=== PATIENT | male | born 1940 | race African-American/Black ===

== ENCOUNTER 2022-06-18 13:40 | Inpatient (IN) | payer MEDICARE, MEDICAID ==
[2022-06-18] MEDS ORDERED: Midazolam HCl 2 mg/2 ml Vial ONE (14:11)
[2022-06-18 14:26] LABS: #Eosinphils 0.4 10x3/uL (0.0-0.5); #Monocytes 0.2 10x3/uL (0.0-1.1); #Neutrophils 3.5 10x3/uL (1.5-8.4); %Basophils 0.2 % (0.0-2.0); %Eosinophils 7.7 % (0.0-6.0); %Lymphocytes 19.2 % (18.0-47.0); %Neutrophils 69.7 % (40.0-75.0); Hemoglobin 12.3 g/dL (13.5-17.5); Mean Corpuscular HGB CONC 31.8 g/dL (32.0-36.0); Mean Corpuscular Hemoglobin 26.5 pg (27.0-33.0); Mean Corpuscular Volume 83.2 fl (81.2-95.1); Mean Platelet Volume 12.2 fl (7.4-10.4); Platelet Count 94 10x3/uL (150-450); RBC Distribution Width 16.1 % (11.5-14.5); Red Blood Cell (RBC) Count 4.65 10x6/uL (4.32-5.72); White Blood Cell (WBC) Count 5.1 10x3/uL (3.5-10.5)
[2022-06-18 14:39] LABS: ALT (SGPT) 261 U/L (8-55); AST (SGOT) 156 U/L (5-34); Albumin 3.1 g/dL (3.4-4.8); Alkaline Phosphatase 89 U/L (40-110); Anion Gap 16 mmol/L (10-20); BUN (Urea Nitrogen) 29 mg/dL (8.4-25.7); Bilirubin, Total 0.2 mg/dL (0.2-1.2); Calc. Creatinine Clearance 0 mL/min (70-130); Calcium 10.3 mg/dL (7.8-10.44); Carbon Dioxide 24 mmol/L (23-31); Chloride 113 mmol/L (98-107); Estimated GFR 51; Globulin 3.3 g/dL (2.4-3.5); Glucose 171 mg/dL (83-110); Potassium 4.9 mmol/L (3.5-5.1); Protein, Total 6.4 g/dL (5.8-8.1); Sodium 148 mmol/L (136-145)
[2022-06-18] MEDS ORDERED: Sterile Water 10 ML ONE (14:41)
[2022-06-18] MEDS ORDERED: ADMIXTURE FEE IVPB SCH (15:00)
[2022-06-18] MEDS ORDERED: WATER IVPB SCH (15:00)
[2022-06-18] MEDS ORDERED: DEXTROSE IVPB SCH (15:00)
[2022-06-18] MEDS ORDERED: ISOPROTERENOL IVPB SCH (15:00)
[2022-06-18 15:10] LABS: Bilirubin Neg (Negative); Blood, Urine 250 (Negative); Clarity Slightly Cloudy (Clear); Glucose, Urine (Dipstick) Normal (Negative); Ketone, Urine Negative (Negative); Leukocyte 500 (Negative); Nitrite Positive (Negative); Protein, Urine (Dipstick) 100 mg/dl (Neg-Trace); Specific Gravity, Urine 1.015 (1.002-1.036); Urobilinogen Normal mg/dL (Less than 2)
[2022-06-18] MEDS ORDERED: Cefepime 2 GM VIAL ONE (15:38)
[2022-06-18 15:54] LABS: Bacteria/HPF 4+ HPF (None Seen); Squamous Epithelial 0-3 HPF (0-3); WBC/HPF 21-50 HPF (0-3)
[2022-06-18] MEDS ORDERED: Vancomycin 1.5 GRAM/300 ML BAG 1.5 GM in Premix Bag 1 BAG IVPB SCH (16:00)
[2022-06-18 16:13] LABS: SARS-CoV-2 NAA Rapid Test Not Detected (NotDetected)
[2022-06-18 17:02] LABS: Lactic Acid 2.8 mmol/L (0.5-2.2)
[2022-06-18] MEDS ORDERED: Isoproterenol 2 MG in Dextrose 5% in Water 500 ML IVPB SCH (17:45)
[2022-06-18] MEDS ORDERED: Sodium Chloride 0.9% 500 ML IV SCH (18:45)
[2022-06-18 19:27] LABS: Troponin I 0.024 ng/mL (< 0.028)
[2022-06-18] MEDS: Dextrose 5 %-0.45 % NaCl 1,000 ML IV SCH (19:47)
[2022-06-18] MEDS: levETIRAcetam 500 MG/5 ML VIAL SLOW IVP SCH (20:18)
[2022-06-18 21:42] LABS: Legionella Urinary Ag Negative (Negative); Strep pneumo Urine Ag NEGATIVE (NEGATIVE)
[2022-06-18] MEDS ORDERED: NOREPINEPHRINE 8 MG/250 ML-D5W 250 ML ONE (21:44)
[2022-06-18] MEDS ORDERED: NOREPINEPHRINE 8 MG/250 ML-D5W 250 ML IVPB SCH (22:00)
[2022-06-19] MEDS: Cefepime 1 GM in Sodium Chloride 0.9% 100 ML IVPB SCH ×2 (03:32→14:57)
[2022-06-19 03:53] LABS: INR-International Normal Ratio 1.1; Prothrombin Time 11.5 sec (9.5-12.1)
[2022-06-19 04:02] LABS: ALT (SGPT) 202 U/L (8-55); AST (SGOT) 92 U/L (5-34); Albumin 2.8 g/dL (3.4-4.8); Alkaline Phosphatase 78 U/L (40-110); Anion Gap 10 mmol/L (10-20); BUN (Urea Nitrogen) 23 mg/dL (8.4-25.7); Bilirubin, Direct 0.1 mg/dL (0.1-0.3); Bilirubin, Total 0.2 mg/dL (0.2-1.2); Calc. Creatinine Clearance 39 mL/min (70-130); Carbon Dioxide 25 mmol/L (23-31); Cardiac Risk 2.9 (Less than 4.5); Chloride 119 mmol/L (98-107); Cholesterol 110 mg/dl (< 200 Desired); Estimated GFR 52; Glucose 87 mg/dL (83-110); HDL Cholesterol 38 mg/dL (>60 Neg Risk); LDL Cholesterol, Calculated 64 mg/dL; Magnesium 1.6 mg/dL (1.6-2.6); Potassium 4.1 mmol/L (3.5-5.1); Protein, Total 5.5 g/dL (5.8-8.1); Sodium 150 mmol/L (136-145); Triglycerides 41 mg/dL (Less than 150)
[2022-06-19 04:04] LABS: Hemoglobin 11.2 g/dL (13.5-17.5); Mean Corpuscular HGB CONC 33.3 g/dL (32.0-36.0); Mean Corpuscular Hemoglobin 26.9 pg (27.0-33.0); Mean Corpuscular Volume 80.6 fl (81.2-95.1); Mean Platelet Volume 12.6 fl (7.4-10.4); Platelet Count 88 10x3/uL (150-450); RBC Distribution Width 16.2 % (11.5-14.5); Red Blood Cell (RBC) Count 4.17 10x6/uL (4.32-5.72); White Blood Cell (WBC) Count 8.1 10x3/uL (3.5-10.5)
[2022-06-19 04:06] LABS: Troponin I 0.122 ng/mL (< 0.028)
[2022-06-19 05:36] LABS: MDiff Complete? YES
[2022-06-19 05:40] LABS: Band 9 % (5-11); Eosinophils 3 % (0-10); Lymphocytes 5 % (21-51); Monocytes 2 % (0-10); Neutrophil 81 % (42-75); Nucleated RBC 1 % (0)
[2022-06-19 05:43] LABS: Platelet Morphology Comment Appears Decreased
[2022-06-19 05:45] LABS: Elliptocytes SLIGHT = 2-5 cells (100X) (0-1/hpf)
[2022-06-19] MEDS ORDERED: Enoxaparin Sodium 40 MG/0.4 ML SYRINGE SC SCH (09:00)
[2022-06-19] MEDS: levETIRAcetam 500 MG/5 ML VIAL SLOW IVP SCH ×2 (09:05→21:00)
[2022-06-19] MEDS: Pantoprazole 40 MG VIAL IVP SCH (09:17)
[2022-06-19 12:58] LABS: HBCM Index 0.07 S/CO (0-0.79); HBSAg Index 0.27 S/CO (0-0.99); Hep A IgM AB Non-Reactive (NonReactive); Hep A IgM S/CO 0.31 S/CO (0-0.79); Hep B Surf Ag Non-Reactive S/CO (NonReactive); Hep C IgG Ab Non-Reactive (NonReactive); Hep C Index 0.08 S/CO (0-0.79); Hepatitis B Core IgM Abs Non-Reactive (NonReactive)
[2022-06-19] MEDS ORDERED: Vancomycin HCl 1 GM in Sodium Chloride 0.9% 250 ML 250 ML IVPB SCH (16:00)
[2022-06-19] MEDS: Dextrose 5 %-0.45 % NaCl 1,000 ML IV SCH ×2 (16:21→20:53)
[2022-06-20] MEDS: Dextrose 5 %-0.45 % NaCl 1,000 ML IV SCH
[2022-06-20] MEDS: Scopolamine 1.5 mg/72 hour Patch TOP SCH (00:26)
[2022-06-20 04:15] LABS: Mean Corpuscular HGB CONC 32.1 g/dL (32.0-36.0); Mean Corpuscular Hemoglobin 25.6 pg (27.0-33.0); Mean Corpuscular Volume 79.8 fl (81.2-95.1); Platelet Count 69 10x3/uL (150-450); RBC Distribution Width 16.4 % (11.5-14.5); Red Blood Cell (RBC) Count 3.91 10x6/uL (4.32-5.72); White Blood Cell (WBC) Count 6.4 10x3/uL (3.5-10.5)
[2022-06-20 04:27] LABS: Anion Gap 13 mmol/L (10-20); BUN (Urea Nitrogen) 19 mg/dL (8.4-25.7); Calc. Creatinine Clearance 41 mL/min (70-130); Calcium 9.2 mg/dL (7.8-10.44); Carbon Dioxide 23 mmol/L (23-31); Chloride 118 mmol/L (98-107); Estimated GFR 50; Glucose 98 mg/dL (83-110); Magnesium 1.6 mg/dL (1.6-2.6); Potassium 3.5 mmol/L (3.5-5.1); Sodium 150 mmol/L (136-145)
[2022-06-20 04:31] LABS: ALT (SGPT) 147 U/L (8-55); AST (SGOT) 53 U/L (5-34); Albumin 2.6 g/dL (3.4-4.8); Alkaline Phosphatase 73 U/L (40-110); Bilirubin, Direct 0.1 mg/dL (0.1-0.3); Bilirubin, Total 0.2 mg/dL (0.2-1.2); Protein, Total 5.3 g/dL (5.8-8.1)
[2022-06-20] MEDS: Cefepime 1 GM in Sodium Chloride 0.9% 100 ML IVPB SCH ×2 (04:39→16:19)
[2022-06-20 06:29] LABS: MDiff Complete? YES; Platelet Morphology Comment Appears Decreased
[2022-06-20 06:34] LABS: Band 5 % (5-11); Eosinophils 1 % (0-10); Lymphocytes 12 % (21-51); Monocytes 6 % (0-10); Neutrophil 76 % (42-75)
[2022-06-20] MEDS: levETIRAcetam 500 MG/5 ML VIAL SLOW IVP SCH ×2 (08:53→20:43)
[2022-06-20] MEDS: Pantoprazole 40 MG VIAL IVP SCH (08:53)
[2022-06-20] MEDS: Dextrose 5% in Water 1,000 ML IV SCH (08:55)
[2022-06-20 13:12] VITALS: BMI 21.2
[2022-06-20 15:55] LABS: Vancomycin, Trough 11.9 ug/mL
[2022-06-21] MEDS: Dextrose 5% in Water 1,000 ML IV SCH ×2 (00:41→17:00)
[2022-06-21] MEDS ORDERED: hydrALAZINE 20 MG/ML VIAL SLOW IVP SCH (01:30)
[2022-06-21] MEDS: Cefepime 1 GM in Sodium Chloride 0.9% 100 ML IVPB SCH ×2 (03:48→18:59)
[2022-06-21 04:38] LABS: #Eosinphils 0.4 10x3/uL (0.0-0.5); #Monocytes 0.4 10x3/uL (0.0-1.1); #Neutrophils 4.7 10x3/uL (1.5-8.4); %Basophils 0.2 % (0.0-2.0); %Eosinophils 5.4 % (0.0-6.0); %Lymphocytes 15.1 % (18.0-47.0); %Monocytes 6.7 % (0.0-10.0); Hemoglobin 10.9 g/dL (13.5-17.5); Mean Corpuscular HGB CONC 32.6 g/dL (32.0-36.0); Mean Corpuscular Hemoglobin 25.8 pg (27.0-33.0); Mean Platelet Volume 11.6 fl (7.4-10.4); Platelet Count 71 10x3/uL (150-450); RBC Distribution Width 15.9 % (11.5-14.5); Red Blood Cell (RBC) Count 4.23 10x6/uL (4.32-5.72); White Blood Cell (WBC) Count 6.5 10x3/uL (3.5-10.5)
[2022-06-21 04:58] LABS: Anion Gap 12 mmol/L (10-20); BUN (Urea Nitrogen) 13 mg/dL (8.4-25.7); Calc. Creatinine Clearance 44 mL/min (70-130); Calcium 9.9 mg/dL (7.8-10.44); Carbon Dioxide 26 mmol/L (23-31); Chloride 111 mmol/L (98-107); Estimated GFR 58; Glucose 99 mg/dL (83-110); Magnesium 1.6 mg/dL (1.6-2.6); Potassium 3.5 mmol/L (3.5-5.1); Sodium 145 mmol/L (136-145)
[2022-06-21] MEDS ORDERED: Magnesium 2 GM/50 ML(in water) 4 GM in Premix Bag 1 BAG IVPB SCH ×2 (06:30→09:00)
[2022-06-21] MEDS ORDERED: Potassium Chloride 40 MEQ in Premix Bag 1 BAG IVPB SCH (06:30)
[2022-06-21] MEDS ORDERED: levETIRAcetam 500 MG/5 ML VIAL ONE ×3 (08:34→10:38)
[2022-06-21] MEDS: Potassium Chloride 20 MEQ in Premix Bag 1 BAG IVPB SCH ×2 (09:00→11:02)
[2022-06-21] MEDS: Pantoprazole 40 MG VIAL IVP SCH (09:01)
[2022-06-21] MEDS: levETIRAcetam 500 MG/5 ML VIAL SLOW IVP SCH ×2 (10:44→21:16)
[2022-06-21] MEDS: hydrALAZINE 20 MG/ML VIAL SLOW IVP PRN (19:40)
[2022-06-22] MEDS: Dextrose 5% in Water 1,000 ML IV SCH ×2 (04:49→20:00)
[2022-06-22 06:40] LABS: Anion Gap 13 mmol/L (10-20); BUN (Urea Nitrogen) 9 mg/dL (8.4-25.7); Calc. Creatinine Clearance 64 mL/min (70-130); Calcium 9.4 mg/dL (7.8-10.44); Carbon Dioxide 23 mmol/L (23-31); Chloride 111 mmol/L (98-107); Estimated GFR 87; Glucose 127 mg/dL (83-110); Magnesium 2.6 mg/dL (1.6-2.6); Potassium 3.8 mmol/L (3.5-5.1); Sodium 143 mmol/L (136-145)
[2022-06-22 07:16] LABS: Hemoglobin 11.8 g/dL (13.5-17.5); Mean Corpuscular HGB CONC 32.9 g/dL (32.0-36.0); Mean Corpuscular Hemoglobin 26.4 pg (27.0-33.0); Mean Corpuscular Volume 80.3 fl (81.2-95.1); Platelet Count 65 10x3/uL (150-450); RBC Distribution Width 15.9 % (11.5-14.5); Red Blood Cell (RBC) Count 4.47 10x6/uL (4.32-5.72); White Blood Cell (WBC) Count 4.5 10x3/uL (3.5-10.5)
[2022-06-22] MEDS: hydrALAZINE 20 MG/ML VIAL SLOW IVP PRN (07:50)
[2022-06-22] MEDS: Cefepime 1 GM in Sodium Chloride 0.9% 100 ML IVPB SCH ×2 (07:52→17:17)
[2022-06-22 08:19] LABS: MDiff Complete? YES; Manual Diff?? YES
[2022-06-22] MEDS ORDERED: levETIRAcetam 500 MG/5 ML VIAL ONE ×2 (10:38)
[2022-06-22] MEDS: Pantoprazole 40 MG VIAL IVP SCH (10:48)
[2022-06-22] MEDS: levETIRAcetam 500 MG/5 ML VIAL SLOW IVP SCH ×2 (10:48→22:55)
[2022-06-22 11:07] LABS: Band 10 % (5-11); Eosinophils 5 % (0-10); Lymphocytes 8 % (21-51); Metamyelocyte 1 % (0-0); Monocytes 6 % (0-10); Neutrophil 69 % (42-75); Nucleated RBC 2 % (0); Reactive Lymphocytes 1 % (0-10)
[2022-06-22 11:08] LABS: Anisocytosis SLIGHT = 6-15 cells (100X) (0-5/hpf); Platelet Morphology Comment Appears Decreased
[2022-06-23] MEDS: Scopolamine 1.5 mg/72 hour Patch TOP SCH (01:04)
[2022-06-23] MEDS: Dextrose 5% in Water 1,000 ML IV SCH ×3 (02:55→22:33)
[2022-06-23] MEDS: Cefepime 1 GM in Sodium Chloride 0.9% 100 ML IVPB SCH ×2 (04:09→17:34)
[2022-06-23 04:22] LABS: Anion Gap 11 mmol/L (10-20); BUN (Urea Nitrogen) 8 mg/dL (8.4-25.7); Calc. Creatinine Clearance 54 mL/min (70-130); Calcium 9.2 mg/dL (7.8-10.44); Carbon Dioxide 24 mmol/L (23-31); Chloride 112 mmol/L (98-107); Estimated GFR 74; Glucose 97 mg/dL (83-110); Magnesium 2.3 mg/dL (1.6-2.6); Potassium 3.7 mmol/L (3.5-5.1); Sodium 143 mmol/L (136-145)
[2022-06-23 04:29] LABS: Mean Platelet Volume 11.8 fl (7.4-10.4)
[2022-06-23 04:30] LABS: #Eosinphils 0.5 10x3/uL (0.0-0.5); #Monocytes 0.3 10x3/uL (0.0-1.1); #Neutrophils 2.6 10x3/uL (1.5-8.4); %Basophils 0.2 % (0.0-2.0); %Eosinophils 11.2 % (0.0-6.0); %Lymphocytes 22.6 % (18.0-47.0); %Monocytes 7.5 % (0.0-10.0); Hemoglobin 11.6 g/dL (13.5-17.5); Mean Corpuscular HGB CONC 33.3 g/dL (32.0-36.0); Mean Corpuscular Hemoglobin 26.1 pg (27.0-33.0); Mean Corpuscular Volume 78.2 fl (81.2-95.1); Platelet Count 85 10x3/uL (150-450); RBC Distribution Width 15.7 % (11.5-14.5); Red Blood Cell (RBC) Count 4.45 10x6/uL (4.32-5.72); White Blood Cell (WBC) Count 4.4 10x3/uL (3.5-10.5)
[2022-06-23] MEDS: Pantoprazole 40 MG VIAL IVP SCH (09:35)
[2022-06-23] MEDS: levETIRAcetam 500 MG/5 ML VIAL SLOW IVP SCH ×2 (09:35→20:57)
[2022-06-23] MEDS ORDERED: levETIRAcetam 500 MG/5 ML VIAL ONE ×2 (20:12→20:13)
[2022-06-24] MEDS: Cefepime 1 GM in Sodium Chloride 0.9% 100 ML IVPB SCH (05:13)
[2022-06-24 07:28] LABS: #Eosinphils 0.5 10x3/uL (0.0-0.5); #Monocytes 0.2 10x3/uL (0.0-1.1); #Neutrophils 3.4 10x3/uL (1.5-8.4); %Basophils 0.2 % (0.0-2.0); %Eosinophils 8.9 % (0.0-6.0); %Lymphocytes 18.1 % (18.0-47.0); %Monocytes 4.7 % (0.0-10.0); %Neutrophils 67.7 % (40.0-75.0); Hemoglobin 11.7 g/dL (13.5-17.5); Mean Corpuscular HGB CONC 33.1 g/dL (32.0-36.0); Mean Corpuscular Hemoglobin 26.2 pg (27.0-33.0); Mean Corpuscular Volume 79.1 fl (81.2-95.1); Platelet Count 82 10x3/uL (150-450); RBC Distribution Width 15.4 % (11.5-14.5); Red Blood Cell (RBC) Count 4.46 10x6/uL (4.32-5.72); White Blood Cell (WBC) Count 5.1 10x3/uL (3.5-10.5)
[2022-06-24 07:45] LABS: Anion Gap 12 mmol/L (10-20); BUN (Urea Nitrogen) 5 mg/dL (8.4-25.7); Calc. Creatinine Clearance 59 mL/min (70-130); Calcium 9.3 mg/dL (7.8-10.44); Carbon Dioxide 24 mmol/L (23-31); Chloride 112 mmol/L (98-107); Estimated GFR 82; Glucose 101 mg/dL (83-110); Potassium 3.5 mmol/L (3.5-5.1); Sodium 144 mmol/L (136-145)
[2022-06-24] MEDS: Pantoprazole 40 MG VIAL IVP SCH (09:24)
[2022-06-24] MEDS: levETIRAcetam 500 MG/5 ML VIAL SLOW IVP SCH (09:24)
[2022-06-24] MEDS ORDERED: Cefdinir 300 MG CAP PO SCH ×2 (14:00→21:00)
[2022-06-24 16:17] VITALS: BP 167/83; TEMP 97.6
[2022-06-27 08:14] LABS: Critical Notified Time 1423; Puncture Site Other Site
[2022-06-27 08:15] LABS: Actual Bicarbonate (HCO3v) 24 mEq/L (22-28); pH (venous) 7.24 (7.32-7.43)
[2022-06-27 08:17] LABS: Calcium, Ionized (venous) 1.22 mmol/L (1.16-1.32); Chloride (VBG) 113 mmol/L (98-106); Hemoglobin (Hb) 12.3 g/dL (12.6-17.4); Potassium (VBG) 3.77 mmol/L (3.70-5.30); RapidComm Collect By CBN; Sodium 147.5 mmol/L (133-146)
== END 2022-06-24 16:00 | DRG 100 ==
LOC: CSHERS 13:40 → CSHICU 18:02 → CSHTELE 06-20 19:10
PROVIDERS: ADMIT Family Medicine; ATTEND Internal Medicine
PROC: 06HY33Z Insertion of Infusion Device into Lower Vein, Percutaneous Approach (ICD-10-PCS; principal; 2022-06-18)
PROC: 3E043XZ Introduction of Vasopressor into Central Vein, Percutaneous Approach (ICD-10-PCS; 2022-06-18)
DX: R56.9 Unspecified convulsions (principal); A41.59 Other Gram-negative sepsis; G93.41 Metabolic encephalopathy; J18.9 Pneumonia, unspecified organism; R65.21 Severe sepsis with septic shock; R44.3 Hallucinations, unspecified; N17.9 Acute kidney failure, unspecified; E87.1 Hypo-osmolality and hyponatremia; E87.0 Hyperosmolality and hypernatremia; N39.0 Urinary tract infection, site not specified; B17.9 Acute viral hepatitis, unspecified; E46 Unspecified protein-calorie malnutrition; G30.9 Alzheimer's disease, unspecified; Z66 Do not resuscitate; Z51.5 Encounter for palliative care; F02.80 Dementia in other diseases classified elsewhere, unspecified severity, without behavioral disturbance, psychotic disturbance, mood disturbance, and anxiety; E78.5 Hyperlipidemia, unspecified; M10.9 Gout, unspecified; E78.00 Pure hypercholesterolemia, unspecified; F41.9 Anxiety disorder, unspecified; I12.9 Hypertensive chronic kidney disease with stage 1 through stage 4 chronic kidney disease, or unspecified chronic kidney disease; E11.22 Type 2 diabetes mellitus with diabetic chronic kidney disease; R00.1 Bradycardia, unspecified; D69.6 Thrombocytopenia, unspecified; T68.XXXA Hypothermia, initial encounter; Z20.822 Contact with and (suspected) exposure to COVID-19; E88.09 Other disorders of plasma-protein metabolism, not elsewhere classified; B96.89 Other specified bacterial agents as the cause of diseases classified elsewhere; E55.9 Vitamin D deficiency, unspecified; N18.2 Chronic kidney disease, stage 2 (mild); R53.81 Other malaise; E86.0 Dehydration; N40.0 Benign prostatic hyperplasia without lower urinary tract symptoms; I69.319 Unspecified symptoms and signs involving cognitive functions following cerebral infarction; Z87.891 Personal history of nicotine dependence; Z79.899 Other long term (current) drug therapy; Z90.79 Acquired absence of other genital organ(s); Z98.890 Other specified postprocedural states; Z68.21 Body mass index [BMI] 21.0-21.9, adult; Z91.018 Allergy to other foods; Z78.1 Physical restraint status; Z91.041 Radiographic dye allergy status
CPT/HCPCS: 36415; 36416; 36556; 51702; 70450; 71045; 76705; 76770; 80048; 80053; 80061; 80074; 80076; 80202; 81003; 81015; 82140; 82533; 82550; 82805; 83036; 83605; 83735; 84443; 84484; 85025; 85610; 85730; 87040; 87077; 87081; 87086; 87186; 87449; 87899; 93005; 93010; 93306; 95713; 95819; 95957; 96365; 96366; 96368; 96375; C9113; J0360; J0692; J1610; J1650; J1953; J2250; J3370; J3475; J3480; J3490; J7030; J7042; J7050; J7070; U0002

== ENCOUNTER 2022-09-19 13:52 | Inpatient (IN) | payer MEDICARE, MEDICAID ==
[2022-09-19] MEDS ORDERED: Dextrose 50% Abboject 50 ML SYRINGE ONE (13:58)
[2022-09-19 14:32] LABS: #Monocytes 0.5 10x3/uL (0.0-1.1); #Neutrophils 7.4 10x3/uL (1.5-8.4); %Basophils 0.4 % (0.0-2.0); %Eosinophils 0.2 % (0.0-6.0); %Lymphocytes 12.3 % (18.0-47.0); %Monocytes 5.6 % (0.0-10.0); %Neutrophils 81.2 % (40.0-75.0); Hemoglobin 14.2 g/dL (13.5-17.5); Mean Corpuscular HGB CONC 31.1 g/dL (32.0-36.0); Mean Corpuscular Hemoglobin 26.8 pg (27.0-33.0); Mean Corpuscular Volume 86.2 fl (81.2-95.1); Mean Platelet Volume 11.4 fl (7.4-10.4); Platelet Count 310 10x3/uL (150-450); RBC Distribution Width 18.1 % (11.5-14.5); White Blood Cell (WBC) Count 9.1 10x3/uL (3.5-10.5)
[2022-09-19 15:32] LABS: ALT (SGPT) 34 U/L (8-55); AST (SGOT) 28 U/L (5-34); Albumin 3.8 g/dL (3.4-4.8); Alkaline Phosphatase 118 U/L (40-110); Anion Gap 22 mmol/L (10-20); BUN (Urea Nitrogen) 92 mg/dL (8.4-25.7); Bilirubin, Total 1.1 mg/dL (0.2-1.2); Calc. Creatinine Clearance 0 mL/min (70-130); Carbon Dioxide 22 mmol/L (23-31); Chloride 131 mmol/L (98-107); Estimated GFR 21; Glucose 243 mg/dL (83-110); Potassium 3.4 mmol/L (3.5-5.1); Protein, Total 7.8 g/dL (5.8-8.1); Sodium 172 mmol/L (136-145)
[2022-09-19] MEDS ORDERED: Dextrose 5% in Water 1,000 ML IV SCH ×2 (17:45→21:15)
[2022-09-19] MEDS ORDERED: Sodium Chloride 0.45% 1,000 ML IV SCH (17:45)
[2022-09-19 20:41] LABS: Anion Gap 19 mmol/L (10-20); BUN (Urea Nitrogen) 88 mg/dL (8.4-25.7); Calc. Creatinine Clearance 15 mL/min (70-130); Calcium 9.6 mg/dL (7.8-10.44); Carbon Dioxide 20 mmol/L (23-31); Chloride 133 mmol/L (98-107); Estimated GFR 24; Glucose 137 mg/dL (83-110); Magnesium 3.2 mg/dL (1.6-2.6); Potassium 4.1 mmol/L (3.5-5.1); Sodium 168 mmol/L (136-145)
[2022-09-19 21:11] LABS: SARS-CoV-2 NAA Rapid Test Not Detected (NotDetected)
[2022-09-20 00:56] LABS: Anion Gap 15 mmol/L (10-20); BUN (Urea Nitrogen) 80 mg/dL (8.4-25.7); Calc. Creatinine Clearance 18 mL/min (70-130); Carbon Dioxide 21 mmol/L (23-31); Chloride 130 mmol/L (98-107); Estimated GFR 29; Glucose 248 mg/dL (83-110); Potassium 3.6 mmol/L (3.5-5.1); Sodium 162 mmol/L (136-145)
[2022-09-20] MEDS ORDERED: Electrolyte Replacement Protocol FS PRN (02:10)
[2022-09-20] MEDS: Dextrose 5% in Water 1,000 ML IV SCH ×4 (02:28→14:18)
[2022-09-20] MEDS: Potassium Chloride 20 MEQ in Premix Bag 1 BAG IVPB SCH ×4 (02:29→17:06)
[2022-09-20 04:52] LABS: Albumin 3.1 g/dL (3.4-4.8); Anion Gap 15 mmol/L (10-20); BUN (Urea Nitrogen) 74 mg/dL (8.4-25.7); BUN/Creatinine Ratio 36.82; Calc. Creatinine Clearance 20 mL/min (70-130); Calcium 9.2 mg/dL (7.8-10.44); Carbon Dioxide 22 mmol/L (23-31); Chloride 128 mmol/L (98-107); Estimated GFR 33; Glucose 199 mg/dL (83-110); Magnesium 2.8 mg/dL (1.6-2.6); Phosphorus 2.5 mg/dL (2.3-4.7); Potassium 3.6 mmol/L (3.5-5.1); Sodium 161 mmol/L (136-145)
[2022-09-20] MEDS ORDERED: Sodium Chloride 0.45% 1,000 ML IV SCH (08:15)
[2022-09-20] MEDS ORDERED: Ondansetron PF 4 MG/2 ML Vial IVP PRN (08:20)
[2022-09-20] MEDS ORDERED: Acetaminophen 650 MG Suppository PR PRN (08:20)
[2022-09-20] MEDS ORDERED: Ondansetron ODT 4 MG TAB PO PRN (08:20)
[2022-09-20] MEDS ORDERED: Acetaminophen 500 MG TAB PO PRN (08:20)
[2022-09-20] MEDS: Sodium Chloride 0.45% 1,000 ML IV SCH ×2 (08:46→23:38)
[2022-09-20] MEDS: Famotidine/PF 20 mg/2ml Vial SLOW IVP SCH (09:02)
[2022-09-20 14:29] LABS: Anion Gap 11 mmol/L (10-20); BUN (Urea Nitrogen) 53 mg/dL (8.4-25.7); Calc. Creatinine Clearance 27 mL/min (70-130); Calcium 8.7 mg/dL (7.8-10.44); Carbon Dioxide 25 mmol/L (23-31); Chloride 124 mmol/L (98-107); Estimated GFR 45; Glucose 161 mg/dL (83-110); Potassium 3.4 mmol/L (3.5-5.1); Sodium 157 mmol/L (136-145)
[2022-09-20] MEDS ORDERED: Dextrose 5% in Water 1,000 ML IV SCH (15:50)
[2022-09-21 04:25] LABS: #Eosinphils 0.2 10x3/uL (0.0-0.5); #Monocytes 0.3 10x3/uL (0.0-1.1); %Basophils 0.2 % (0.0-2.0); %Eosinophils 3.1 % (0.0-6.0); %Lymphocytes 21.3 % (18.0-47.0); %Monocytes 5.9 % (0.0-10.0); %Neutrophils 69.2 % (40.0-75.0); Hemoglobin 11.2 g/dL (13.5-17.5); Mean Corpuscular HGB CONC 32.1 g/dL (32.0-36.0); Mean Corpuscular Hemoglobin 26.2 pg (27.0-33.0); Mean Corpuscular Volume 81.7 fl (81.2-95.1); Mean Platelet Volume 12.1 fl (7.4-10.4); Platelet Count 210 10x3/uL (150-450); RBC Distribution Width 16.7 % (11.5-14.5); Red Blood Cell (RBC) Count 4.27 10x6/uL (4.32-5.72); White Blood Cell (WBC) Count 5.7 10x3/uL (3.5-10.5)
[2022-09-21 04:48] LABS: ALT (SGPT) 26 U/L (8-55); AST (SGOT) 34 U/L (5-34); Albumin 2.9 g/dL (3.4-4.8); Alkaline Phosphatase 91 U/L (40-110); Anion Gap 11 mmol/L (10-20); BUN (Urea Nitrogen) 33 mg/dL (8.4-25.7); Bilirubin, Total 1.1 mg/dL (0.2-1.2); Calc. Creatinine Clearance 33 mL/min (70-130); Calcium 8.7 mg/dL (7.8-10.44); Carbon Dioxide 23 mmol/L (23-31); Chloride 124 mmol/L (98-107); Estimated GFR 60; Globulin 2.9 g/dL (2.4-3.5); Glucose 100 mg/dL (83-110); Magnesium 2.4 mg/dL (1.6-2.6); Phosphorus 1.9 mg/dL (2.3-4.7); Potassium 3.8 mmol/L (3.5-5.1); Protein, Total 5.8 g/dL (5.8-8.1); Sodium 154 mmol/L (136-145)
[2022-09-21] MEDS ORDERED: Potassium Phosphate 15 MMOL in Sodium Chloride 0.9% 100 ML IVPB SCH (06:00)
[2022-09-21] MEDS: Famotidine/PF 20 mg/2ml Vial SLOW IVP SCH (07:33)
[2022-09-21] MEDS: D5 1/4 NS 1,000 ML IV SCH ×2 (11:47→21:55)
[2022-09-21] MEDS: hydrALAZINE 20 MG/ML VIAL SLOW IVP PRN (16:34)
[2022-09-21] MEDS: Latanoprost 0.005% Ophth Soln 2.5 ml Bottle EA EYE SCH (20:12)
[2022-09-21] MEDS: Dorzolamide HCl 2% Ophth Soln 10 ml Bottle EA EYE SCH (20:13)
[2022-09-22 04:52] LABS: ALT (SGPT) 27 U/L (8-55); AST (SGOT) 36 U/L (5-34); Alkaline Phosphatase 99 U/L (40-110); Anion Gap 11 mmol/L (10-20); BUN (Urea Nitrogen) 21 mg/dL (8.4-25.7); Bilirubin, Total 0.7 mg/dL (0.2-1.2); Calc. Creatinine Clearance 50 mL/min (70-130); Calcium 8.9 mg/dL (7.8-10.44); Carbon Dioxide 23 mmol/L (23-31); Chloride 119 mmol/L (98-107); Estimated GFR 84; Globulin 3.2 g/dL (2.4-3.5); Glucose 107 mg/dL (83-110); Protein, Total 6.2 g/dL (5.8-8.1); Sodium 149 mmol/L (136-145)
[2022-09-22] MEDS: Dorzolamide HCl 2% Ophth Soln 10 ml Bottle EA EYE SCH ×2 (07:56→21:55)
[2022-09-22] MEDS: Famotidine/PF 20 mg/2ml Vial SLOW IVP SCH (07:56)
[2022-09-22] MEDS: D5 1/4 NS 1,000 ML IV SCH ×2 (08:01→18:35)
[2022-09-22] MEDS: Latanoprost 0.005% Ophth Soln 2.5 ml Bottle EA EYE SCH (21:55)
[2022-09-23 07:25] LABS: Anion Gap 12 mmol/L (10-20); BUN (Urea Nitrogen) 12 mg/dL (8.4-25.7); Calc. Creatinine Clearance 44 mL/min (70-130); Calcium 9.6 mg/dL (7.8-10.44); Carbon Dioxide 24 mmol/L (23-31); Chloride 117 mmol/L (98-107); Estimated GFR 77; Glucose 94 mg/dL (83-110); Potassium 4.6 mmol/L (3.5-5.1); Sodium 148 mmol/L (136-145)
[2022-09-23] MEDS: D5 1/4 NS 1,000 ML IV SCH ×3 (08:54→18:25)
[2022-09-23] MEDS: Dorzolamide HCl 2% Ophth Soln 10 ml Bottle EA EYE SCH ×2 (09:12→21:08)
[2022-09-23] MEDS: Famotidine/PF 20 mg/2ml Vial SLOW IVP SCH (09:12)
[2022-09-23] MEDS: Latanoprost 0.005% Ophth Soln 2.5 ml Bottle EA EYE SCH (21:09)
[2022-09-23] MEDS: hydrALAZINE 20 MG/ML VIAL SLOW IVP PRN (21:15)
[2022-09-24] MEDS: hydrALAZINE 20 MG/ML VIAL SLOW IVP PRN (01:36)
[2022-09-24] MEDS: D5 1/4 NS 1,000 ML IV SCH ×2 (01:43→06:56)
[2022-09-24 06:29] LABS: Anion Gap 12 mmol/L (10-20); BUN (Urea Nitrogen) 7 mg/dL (8.4-25.7); Calc. Creatinine Clearance 53 mL/min (70-130); Calcium 9.1 mg/dL (7.8-10.44); Carbon Dioxide 19 mmol/L (23-31); Chloride 118 mmol/L (98-107); Estimated GFR 88; Glucose 115 mg/dL (83-110); Potassium 3.4 mmol/L (3.5-5.1); Sodium 146 mmol/L (136-145)
[2022-09-24] MEDS ORDERED: Sodium Bicarbonate 50 MEQ in Dextrose 5% in Water 1,000 ML IV SCH (07:00)
[2022-09-24] MEDS ORDERED: 1/4 NS IV SCH (07:00)
[2022-09-24] MEDS ORDERED: POTASSIUM CHLORIDE IV SCH (07:00)
[2022-09-24] MEDS ORDERED: D5 IV SCH (07:00)
[2022-09-24] MEDS ORDERED: ADMIXTURE FEE IV SCH (07:00)
[2022-09-24] MEDS: Dorzolamide HCl 2% Ophth Soln 10 ml Bottle EA EYE SCH ×2 (08:11→21:59)
[2022-09-24] MEDS: Famotidine/PF 20 mg/2ml Vial SLOW IVP SCH (08:11)
[2022-09-24] MEDS ORDERED: Potassium Chloride 20 MEQ TAB PO SCH (09:00)
[2022-09-24] MEDS: Potassium Chloride 20 MEQ in Premix Bag 1 BAG IVPB SCH ×2 (10:44→13:36)
[2022-09-24 14:46] LABS: Albumin 2.7 g/dL (3.4-4.8); Anion Gap 12 mmol/L (10-20); BUN (Urea Nitrogen) 6 mg/dL (8.4-25.7); BUN/Creatinine Ratio 7.59; Calc. Creatinine Clearance 54 mL/min (70-130); Calcium 8.8 mg/dL (7.8-10.44); Carbon Dioxide 18 mmol/L (23-31); Chloride 118 mmol/L (98-107); Estimated GFR 89; Glucose 89 mg/dL (83-110); Potassium 4.6 mmol/L (3.5-5.1); Sodium 143 mmol/L (136-145)
[2022-09-24 14:50] LABS: Phosphorus 1.7 mg/dL (2.3-4.7)
[2022-09-24] MEDS: Sodium Bicarbonate 50 MEQ in Dextrose 5% in Water 1,000 ML IV SCH (19:30)
[2022-09-24] MEDS: Latanoprost 0.005% Ophth Soln 2.5 ml Bottle EA EYE SCH (22:00)
[2022-09-25] MEDS: Sodium Bicarbonate 50 MEQ in Dextrose 5% in Water 1,000 ML IV SCH ×2 (05:38→14:06)
[2022-09-25 07:14] LABS: #Eosinphils 0.2 10x3/uL (0.0-0.5); #Monocytes 0.4 10x3/uL (0.0-1.1); #Neutrophils 4.2 10x3/uL (1.5-8.4); %Basophils 0.2 % (0.0-2.0); %Eosinophils 3.3 % (0.0-6.0); %Lymphocytes 15.5 % (18.0-47.0); %Monocytes 7.1 % (0.0-10.0); %Neutrophils 73.4 % (40.0-75.0); Hemoglobin 11.4 g/dL (13.5-17.5); Mean Corpuscular HGB CONC 32.7 g/dL (32.0-36.0); Mean Corpuscular Hemoglobin 25.6 pg (27.0-33.0); Mean Corpuscular Volume 78.3 fl (81.2-95.1); Mean Platelet Volume 10.8 fl (7.4-10.4); Platelet Count 246 10x3/uL (150-450); RBC Distribution Width 16.3 % (11.5-14.5); Red Blood Cell (RBC) Count 4.46 10x6/uL (4.32-5.72); White Blood Cell (WBC) Count 5.7 10x3/uL (3.5-10.5)
[2022-09-25 07:21] LABS: Albumin 2.6 g/dL (3.4-4.8); Anion Gap 9 mmol/L (10-20); BUN (Urea Nitrogen) 5 mg/dL (8.4-25.7); BUN/Creatinine Ratio 6.17; Calc. Creatinine Clearance 53 mL/min (70-130); Calcium 8.7 mg/dL (7.8-10.44); Carbon Dioxide 23 mmol/L (23-31); Chloride 115 mmol/L (98-107); Estimated GFR 88; Glucose 94 mg/dL (83-110); Magnesium 1.8 mg/dL (1.6-2.6); Potassium 3.6 mmol/L (3.5-5.1); Sodium 143 mmol/L (136-145)
[2022-09-25 07:25] LABS: Phosphorus 1.5 mg/dL (2.3-4.7)
[2022-09-25] MEDS: Famotidine/PF 20 mg/2ml Vial SLOW IVP SCH (08:14)
[2022-09-25] MEDS: Dorzolamide HCl 2% Ophth Soln 10 ml Bottle EA EYE SCH ×2 (08:15→21:59)
[2022-09-25] MEDS ORDERED: Potassium Phosphate 30 MMOL in Sodium Chloride 0.9% 500 ML IVPB SCH (08:30)
[2022-09-25] MEDS: Latanoprost 0.005% Ophth Soln 2.5 ml Bottle EA EYE SCH (21:59)
[2022-09-26] MEDS: Sodium Bicarbonate 50 MEQ in Dextrose 5% in Water 1,000 ML IV SCH (01:19)
[2022-09-26 06:12] LABS: #Eosinphils 0.2 10x3/uL (0.0-0.5); #Monocytes 0.4 10x3/uL (0.0-1.1); #Neutrophils 2.9 10x3/uL (1.5-8.4); %Basophils 0.4 % (0.0-2.0); %Eosinophils 3.2 % (0.0-6.0); %Lymphocytes 26.2 % (18.0-47.0); %Monocytes 7.7 % (0.0-10.0); %Neutrophils 61.9 % (40.0-75.0); Hemoglobin 11.3 g/dL (13.5-17.5); Mean Corpuscular HGB CONC 33.1 g/dL (32.0-36.0); Mean Corpuscular Hemoglobin 26.1 pg (27.0-33.0); Mean Corpuscular Volume 78.8 fl (81.2-95.1); Mean Platelet Volume 10.3 fl (7.4-10.4); Platelet Count 259 10x3/uL (150-450); RBC Distribution Width 16.4 % (11.5-14.5); Red Blood Cell (RBC) Count 4.33 10x6/uL (4.32-5.72); White Blood Cell (WBC) Count 4.7 10x3/uL (3.5-10.5)
[2022-09-26 07:33] LABS: Anion Gap 11 mmol/L (10-20); BUN (Urea Nitrogen) 5 mg/dL (8.4-25.7); Calc. Creatinine Clearance 48 mL/min (70-130); Calcium 8.6 mg/dL (7.8-10.44); Carbon Dioxide 24 mmol/L (23-31); Chloride 112 mmol/L (98-107); Estimated GFR 85; Glucose 97 mg/dL (83-110); Magnesium 1.7 mg/dL (1.6-2.6); Phosphorus 2.2 mg/dL (2.3-4.7); Potassium 3.5 mmol/L (3.5-5.1); Sodium 143 mmol/L (136-145)
[2022-09-26] MEDS ORDERED: Potassium Phosphate 30 MMOL in Sodium Chloride 0.9% 250 ML 250 ML IVPB SCH (09:00)
[2022-09-26] MEDS ORDERED: Magnesium 2 GM/50 ML(in water) 2 GM in Premix Bag 1 BAG IVPB SCH (09:00)
[2022-09-26 10:04] VITALS: BMI 17.3
[2022-09-26] MEDS: Dorzolamide HCl 2% Ophth Soln 10 ml Bottle EA EYE SCH (10:18)
[2022-09-26] MEDS: Famotidine/PF 20 mg/2ml Vial SLOW IVP SCH (10:18)
[2022-09-26 12:03] VITALS: TEMP 97.6
[2022-09-26 17:39] VITALS: BP 135/58
== END 2022-09-26 17:49 | disposition hospice, inpatient (51) | DRG 637 ==
LOC: CSHERS 13:52 → CSHICU 17:56 → CSHTELE 09-22 18:23
PROVIDERS: ADMIT Family Medicine; ATTEND Family Medicine
DX: E11.649 Type 2 diabetes mellitus with hypoglycemia without coma (principal); E43 Unspecified severe protein-calorie malnutrition; G93.41 Metabolic encephalopathy; E87.0 Hyperosmolality and hypernatremia; Z68.1 Body mass index [BMI] 19.9 or less, adult; E87.20 Acidosis, unspecified; Z20.822 Contact with and (suspected) exposure to COVID-19; E86.0 Dehydration; N17.9 Acute kidney failure, unspecified; E87.6 Hypokalemia; E83.42 Hypomagnesemia; E83.39 Other disorders of phosphorus metabolism; Z51.5 Encounter for palliative care; L89.159 Pressure ulcer of sacral region, unspecified stage; M10.9 Gout, unspecified; G30.9 Alzheimer's disease, unspecified; I12.9 Hypertensive chronic kidney disease with stage 1 through stage 4 chronic kidney disease, or unspecified chronic kidney disease; N18.30 Chronic kidney disease, stage 3 unspecified; E11.22 Type 2 diabetes mellitus with diabetic chronic kidney disease; F02.80 Dementia in other diseases classified elsewhere, unspecified severity, without behavioral disturbance, psychotic disturbance, mood disturbance, and anxiety; R13.12 Dysphagia, oropharyngeal phase; E78.00 Pure hypercholesterolemia, unspecified; F41.9 Anxiety disorder, unspecified; Z86.73 Personal history of transient ischemic attack (TIA), and cerebral infarction without residual deficits; Z91.041 Radiographic dye allergy status; Z87.891 Personal history of nicotine dependence; Z90.79 Acquired absence of other genital organ(s); Z79.899 Other long term (current) drug therapy; Z99.3 Dependence on wheelchair; R53.81 Other malaise; G40.909 Epilepsy, unspecified, not intractable, without status epilepticus
CPT/HCPCS: 36415; 36416; 71045; 80048; 80053; 80069; 82550; 83735; 84100; 85025; 87811; 93005; 97139; J0360; J3475; J3480; J3490; J7030; J7042; J7050; J7070; J7999; S0028; U0002